=== PATIENT | female | born 1970 | race Caucasian/White ===

== ENCOUNTER 2023-03-30 13:23 | Outpatient (AMB) | payer OTHER, SELFPAY ==
--- NOTE | 2023-03-30 13:24 | A.OFFVIS_ITS ---
Intake Vital Signs 03/30/23 13:27 Height 5 ft 4 in Weight 295 lb BMI 50.6 BP 132/78 Blood Pressure Location Rt brachial Position Sitting Respiration 19 Pulse 98 Temp 98.6 F Temp Source Temporal Artery Scan Pulse Oximetry (%) 98 Oxygen Delivery Method Room Air Intake Visit Reasons: Joint pain Allergies No Known Allergies Allergy (Verified 03/30/23 13:31) Medication List - Last Reconciled 03/30/23 by Hilda Salazar MD blood sugar diagnostic (FreeStyle Lite Strips) As directed fluticasone propionate 50 mcg/actuation 1 spray intranasal BID glimepiride mg PO levonorgestrel-ethinyl estrad 0.15 mg-30 mcg (91) PO levothyroxine 125 mcg PO DAILY loratadine (Claritin) 10 mg PO DAILY HPI HPI Comments History of Present Illness Details This is a 53-year-old female who presents for evaluation of diffuse pain. The last fall patient started having left hip pain and stiffness, this lasted a few months, she was evaluated by her PCP and prescribed standing dose of NSAIDs which did not provide much relief. Afterwards she started having pain in her right hip. The pain is constant, associated with morning stiffness lasting 10 minutes, improved with getting on an exercise bike. Over the last few months she has been having pain in both elbows. She gets pain in her PIPs while typing. She is unaware of any family history of autoimmune rheumatic disease. Denies any history of DVT/PE. Unaware of any history of psoriasis. [facility] Medical History (Updated 03/30/23 @ 14:24 by Hilda Salazar MD) Hypothyroidism Type 2 diabetes mellitus Surgical History History of tonsillectomy and adenoidectomy Hx of cholecystectomy Hx of lumpectomy Family History Mother Type 2 diabetes mellitus TIA (transient ischemic attack) Migraine Father Pancreatic cancer Substance abuse Sister Type 2 diabetes mellitus Migraine Thyroid disease Social History Alcohol intake: current Alcohol intake frequency: a few times a month Patient Tobacco Use Status: Never used Tobacco Female Reproductive History Menstrual Total pregnancies: 0 Review of Systems Const Reports fatigue and Reports weakness ENT Reports dizziness and Reports tinnitus GI Reports no additional complaints Musc Reports back pain, Reports arthralgias and Reports stiffness Neuro Reports dizziness and Reports weakness Psych Reports anxiety and Reports depression Endo Reports fatigue Physical Exam Vital Signs: Last Vital Signs Temp 98.6 F 03/30/23 13:27 Pulse 98 03/30/23 13:27 Resp 19 03/30/23 13:27 BP 132/78 03/30/23 13:27 Pulse Ox 98 03/30/23 13:27 Oxygen Delivery Method Room Air 03/30/23 13:27 BMI result Body Mass Index 50.6 Const General: cooperative, healthy appearing and comfortable Nutritional Appearance: obese morbidly obese Orientation/consciousness: patient oriented x3 Limitations: no limitations HEENT Head: Yes normocephalic and Yes atraumatic Mouth: moist mucous membranes Resp Effort & Inspection: normal respiratory effort and able to speak in complete sentences Auscultation: clear to auscultation bilaterally Cardio Rate: regular rate Rhythm: regular rhythm GI Inspection: No distended Palpation (GI): Soft to palpation and nontender Neuro General: patient oriented x3 Extrem Other: Bilateral diffuse PIP tenderness without swelling Right elbow pain with full flexion Normal range of motion of both shoulders No wrist pain with full flexion and extension Negative MCP squeeze test Bilateral hip pain with flexion adduction and external rotation Bilateral knee warmth without swelling No ankle swelling or tenderness Negative MTP squeeze test Results Reviewed Results Reviewed: Labs 10/2022? WBC 13.0 Hemoglobin normal? Platelets normal? ESR 17? CRP 1.3 (<0.5) CMP unremarkable HbA1c 6.7%? TSH 2.65? CARLEE 1-640 homogeneous? RF negative? CCP negative Assessment & Plan Assessment & Plan (1) Pain in joint, multiple sites: Code(s): M25.50 - Pain in unspecified joint Plan: This is a 53-year-old female who presents for evaluation of multiple joint pain which started with left hip pain and stiffness followed by right hip pain and stiffness followed by bilateral elbow pain. Labs showed a mildly elevated inflammatory markers. Will order comprehensive serology to screen for under lying autoimmune rheumatic disease. Check x-rays of involved joints. Start prednisone therapeutic trial. Patient has well-controlled diabetes, HbA1c 6.7% advised patient to stop the prednisone and call the office if her blood sugar is above 200 Plan I spent 47 minutes reviewing patient's chart, evaluating patient, ordering diagnostic workup, counseling patient and documenting in the chart Orders: Orders Complete Blood Count Auto Diff Today M06.9 - Rheumatoid arthritis, unspecified Comprehensive Met. Panel Today M06.9 - Rheumatoid arthritis, unspecified C Reactive Protein Today M06.9 - Rheumatoid arthritis, unspecified Erythrocyte Sedimentation Rate Today M06.9 - Rheumatoid arthritis, unspecified Hepatitis A,B,C Profile Today Z11.59 - Encounter for screening for other viral diseases Immunofixation Pnl, Serum Today M06.9 - Rheumatoid arthritis, unspecified Protein Electrophoresis, Serum Today M06.9 - Rheumatoid arthritis, unspecified T Spot TB Today Z11.7 - Encounter for testing for latent tuberculosis infection Cyclic Citrullinated Peptide Today M06.9 - Rheumatoid arthritis, unspecified XR hip LT min 2V Today M25.551 - Pain in right hip, M25.552 - Pain in left hip XR hip RT min 2V Today M25.551 - Pain in right hip, M25.552 - Pain in left hip XR hand LT min 3V Today M79.641 - Pain in right hand, M79.642 - Pain in left hand XR hand RT min 3V Today M79.641 - Pain in right hand, M79.642 - Pain in left hand XR knee LT 3V Today M17.0 - Bilateral primary osteoarthritis of knee XR knee RT 3V Today M17.0 - Bilateral primary osteoarthritis of knee XR knee standing BI Today M17.0 - Bilateral primary osteoarthritis of knee XR lumbar spine 4V min Today G89.29 - Other chronic pain, M54.50 - Low back pain, unspecified Medications: New prednisone Take 3 tabs by mouth once daily with breakfast for 1 week then 2 tabs daily for 1 week then 1 tab daily for 1 week then stop 5 mg PO DIRECTED 42 tabs 0RF Coding Level of Care Code New Pt Level 4 (12114) Diagnoses Pain in joint, multiple sites M25.50
[2023-03-30 13:27] VITALS: BP 132/78; PULSE 98; RESP 19; TEMP 37; O2SAT 98; BMI 50.6
== END 2023-03-30 14:13 | disposition home or self-care (01) ==
PROVIDERS: Visit Provider Student in an Organized Health Care Education/Training Program
DX: M25.50 Pain in unspecified joint (principal)
CPT/HCPCS: 99204

== ENCOUNTER → 2023-03-30 13:23 | Outpatient (BNVA) | payer OTHER, SELFPAY | PROVIDERS: Visit Provider Student in an Organized Health Care Education/Training Program ==

== ENCOUNTER 2023-06-01 14:18 | Outpatient (AMB) | payer OTHER, SELFPAY ==
[2023-06-01 14:29] VITALS: BP 124/78; PULSE 86; TEMP 36.7; O2SAT 96; BMI 51.5
--- NOTE | 2023-06-01 14:29 | A.OFFVIS_ITS ---
Intake Vital Signs 06/01/23 14:29 Height 5 ft 4 in Weight 299 lb 13.259 oz BMI 51.5 BP 124/78 Blood Pressure Location Rt brachial Position Sitting Pulse 86 Pulse Source Pulse Oximeter Temp 98.1 F Temp Source Skin Pulse Oximetry (%) 96 Intake Visit Reasons: OA Intake Note: Pt seen today for OA follow up. 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 She started taking prednisone 2 weeks ago. She states that she felt at least 50% improvement in her overall pain, stiffness and mobility improved pain in her back, hips. Denies any side effects related to prednisone Initial history: This is a 53-year-old female who presents for evaluation of diffuse pain. The last fall patient started having left hip pain and stiffness, this lasted a few months, she was evaluated by her PCP and prescribed standing dose of NSAIDs which did not provide much relief. Afterwards she started having pain in her right hip. The pain is constant, associated with morning stiffness lasting 10 minutes, improved with getting on an exercise bike. Over the last few months she has been having pain in both elbows. She gets pain in her PIPs while typing. She is unaware of any family history of autoimmune rheumatic disease. Denies any history of DVT/PE. Unaware of any history of psoriasis. [facility] Medical History Hypothyroidism Type 2 diabetes mellitus Surgical History History of tonsillectomy and adenoidectomy Hx of lumpectomy Hx of cholecystectomy Family History Mother Type 2 diabetes mellitus TIA (transient ischemic attack) Migraine Father Pancreatic cancer Substance abuse Sister Type 2 diabetes mellitus Migraine Thyroid disease Social History Alcohol intake: current Alcohol intake frequency: a few times a month Patient Tobacco Use Status: Never used Tobacco Review of Systems [facility] Reports back pain and Reports arthralgias Physical Exam Vital Signs: Last Vital Signs Temp 98.1 F 06/01/23 14:29 Pulse 86 06/01/23 14:29 BP 124/78 06/01/23 14:29 Pulse Ox 96 06/01/23 14:29 BMI result Body Mass Index 51.5 Const General: cooperative, healthy appearing and comfortable Nutritional Appearance: obese morbidly obese Orientation/consciousness: patient oriented x3 Limitations: no limitations HEENT Head: Yes normocephalic and Yes atraumatic Mouth: moist mucous membranes Resp Effort & Inspection: normal respiratory effort and able to speak in complete sentences Neuro General: patient oriented x3 Extrem Other: Physical exam today: No swelling or tenderness both hands, wrists, MCPs, PIPs DIPs Normal range of motion of both elbows without pain Positive empty can test bilaterally Minimal right groin pain with flexion adduction and external rotation Negative straight leg raise test bilaterally Physical exam 03/2023 Bilateral diffuse PIP tenderness without swelling Right elbow pain with full flexion Normal range of motion of both shoulders No wrist pain with full flexion and extension Negative MCP squeeze test Bilateral hip pain with flexion adduction and external rotation Bilateral knee warmth without swelling No ankle swelling or tenderness Negative MTP squeeze test Results Reviewed Results Reviewed: Labs 10/2022? WBC 13.0 Hemoglobin normal? Platelets normal? ESR 17? CRP 1.3 (<0.5) CMP unremarkable HbA1c 6.7%? TSH 2.65? CARLEE 1-640 homogeneous? RF negative? CCP negative CRP 1.1 ESR 29 Labs 05/2023 SSA/SSB/Gipson/DIRECTOR OF REVENUE/CCP/dsDNA Hepatitis panel and QuantiFERON test negative X-rays 05/2023 Bilateral hip x-rays impression: Normal Bilateral hand x-rays, impression: Normal examination of both hands Bilateral knee x-rays impression: Mild tricompartmental degenerative osteoarthritis but no acute abnormality L-spine x-ray impression: Normal lumbar spine Assessment & Plan Assessment & Plan (1) Pain in joint, multiple sites: Code(s): M25.50 - Pain in unspecified joint Plan: This is a 53-year-old female who presents for evaluation of multiple joint pain which started with left hip pain and stiffness followed by right hip pain and stiffness followed by bilateral elbow pain. Labs showed a mildly elevated inflammatory markers. Comprehensive serology is unremarkable. Patient had at least 50% symptomatic improvement with 15 mg of prednisone. Upon evaluation today patient has much fewer tender joints. Advised patient to complete the prednisone taper as prescribed. Re-evaluate in 2 months. If patient has recurrent symptoms, will consider starting a DMARD for seronegative arthritis Plan I spent 27 minutes reviewing patient's chart, evaluating patient, counseling patient and documenting in the chart Coding Level of Care Code Est Pt Level 4 (37897) Diagnoses Pain in joint, multiple sites M25.50
== END 2023-06-01 14:50 | disposition home or self-care (01) ==
PROVIDERS: Visit Provider Student in an Organized Health Care Education/Training Program
DX: M25.50 Pain in unspecified joint (principal)
CPT/HCPCS: 99214

== ENCOUNTER → 2023-06-01 14:18 | Outpatient (BNVA) | payer OTHER, SELFPAY | PROVIDERS: Visit Provider Student in an Organized Health Care Education/Training Program ==

== ENCOUNTER 2023-08-04 13:36 | Outpatient (AMB) | payer OTHER, SELFPAY ==
--- NOTE | 2023-08-04 13:51 | MHC.OFFVIS ---
Intake Vital Signs 08/04/23 14:08 Height 5 ft 4 in Weight 302 lb 11.115 oz BMI 52.0 BP 118/72 Blood Pressure Location Rt brachial Position Sitting Pulse 75 Pulse Source Pulse Oximeter Temp 97.7 F Temp Source Skin Pulse Oximetry (%) 98 Intake Visit Reasons: RA/OA Intake Note: Pt last seen 06/01/23, presents today for follow up. Completed prednisone taper, has noticed an increase in pain. 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 She states that she feels much worse now that she has been off the prednisone. She stated that prednisone provided at least 80% relief. She states that she is now having recurring lower back pain, bilateral hip pain on the outside of the hip as well as inside towards the groin. Bilateral knee pain. Initial history: This is a 53-year-old female who presents for evaluation of diffuse pain. The last fall patient started having left hip pain and stiffness, this lasted a few months, she was evaluated by her PCP and prescribed standing dose of NSAIDs which did not provide much relief. Afterwards she started having pain in her right hip. The pain is constant, associated with morning stiffness lasting 10 minutes, improved with getting on an exercise bike. Over the last few months she has been having pain in both elbows. She gets pain in her PIPs while typing. She is unaware of any family history of autoimmune rheumatic disease. Denies any history of DVT/PE. Unaware of any history of psoriasis. [facility] Medical History Hypothyroidism Type 2 diabetes mellitus Surgical History History of tonsillectomy and adenoidectomy Hx of lumpectomy Hx of cholecystectomy Family History Mother Type 2 diabetes mellitus TIA (transient ischemic attack) Migraine Father Pancreatic cancer Substance abuse Sister Type 2 diabetes mellitus Migraine Thyroid disease Social History Alcohol intake: current Alcohol intake frequency: a few times a month Patient Tobacco Use Status: Never used Tobacco Review of Systems [facility] [place] Reports back pain and Reports arthralgias Physical Exam Vital Signs: Last Vital Signs Temp 97.7 F 08/04/23 14:08 Pulse 75 08/04/23 14:08 BP 118/72 08/04/23 14:08 Pulse Ox 98 08/04/23 14:08 BMI result Body Mass Index 52.0 Const General: cooperative, healthy appearing and comfortable Nutritional Appearance: obese morbidly obese Orientation/consciousness: patient oriented x3 Limitations: no limitations HEENT Head: Yes normocephalic and Yes atraumatic Mouth: moist mucous membranes Resp Effort & Inspection: normal respiratory effort and able to speak in complete sentences Neuro General: patient oriented x3 Extrem Other: Physical exam today: Normal range of motion of both shoulders? No wrist pain with full flexion and extension? Negative MCP squeeze test? Bilateral groin pain with flexion adduction and external rotation? Bilateral knee warmth without swelling, pain with full flexion and extension No ankle swelling or tenderness? Negative MTP squeeze test Physical exam 06/01/2023 No swelling or tenderness both hands, wrists, MCPs, PIPs DIPs Normal range of motion of both elbows without pain Positive empty can test bilaterally Minimal right groin pain with flexion adduction and external rotation Negative straight leg raise test bilaterally Physical exam 03/2023 Bilateral diffuse PIP tenderness without swelling Right elbow pain with full flexion Normal range of motion of both shoulders No wrist pain with full flexion and extension Negative MCP squeeze test Bilateral hip pain with flexion adduction and external rotation Bilateral knee warmth without swelling No ankle swelling or tenderness Negative MTP squeeze test Results Reviewed Results Reviewed: Labs 10/2022? WBC 13.0 Hemoglobin normal? Platelets normal? ESR 17? CRP 1.3 (<0.5) CMP unremarkable HbA1c 6.7%? TSH 2.65? CARLEE 1-640 homogeneous? RF negative? CCP negative CRP 1.1 ESR 29 Labs 05/2023 SSA/SSB/Gipson/SUPPRESSION CREW LEADER/CCP/dsDNA Hepatitis panel and QuantiFERON test negative X-rays 05/2023 Bilateral hip x-rays impression: Normal Bilateral hand x-rays, impression: Normal examination of both hands Bilateral knee x-rays impression: Mild tricompartmental degenerative osteoarthritis but no acute abnormality L-spine x-ray impression: Normal lumbar spine Assessment & Plan Assessment & Plan (1) Pain in joint, multiple sites: Code(s): M25.50 - Pain in unspecified joint Plan: This is a 53-year-old female who presents for evaluation of multiple joint pain which started with left hip pain and stiffness followed by right hip pain and stiffness followed by bilateral elbow pain. Labs showed a mildly elevated inflammatory markers. Comprehensive serology is unremarkable. Patient had at least 80% symptomatic improvement with prednisone. Even the 5 mg dose. Start hydroxychloroquine 200 mg Twice daily. Start prednisone 5 mg daily for 3 weeks then 2.5 mg daily for 3 weeks Re-evaluate in 3 months (2) Long-term use of hydroxychloroquine: Code(s): Z79.899 - Other snf (current) drug therapy Plan: Discussed risk of retinopathy with hydroxychloroquine. Patient agreed to proceed. Patient states that she follows up regularly with estimate clerk Dr. Burger advised patient to call her estimate clerk and make an appointment for Plaquenil screening Plan I spent 27 minutes reviewing patient's chart, evaluating patient, placing orders, counseling patient and documenting in the chart Medications: New hydroxychloroquine 200 mg PO BID 60 tabs 2RF prednisone Take 2 tabs by mouth once daily for 3 weeks then 1 tab daily for 3 weeks then stop 63 tabs 0RF Coding Level of Care Code Est Pt Level 4 (10729) Diagnoses Pain in joint, multiple sites M25.50 Long-term use of hydroxychloroquine Z79.899
[2023-08-04 14:08] VITALS: BP 118/72; PULSE 75; TEMP 36.5; O2SAT 98; BMI 52.0
== END 2023-08-04 14:36 | disposition home or self-care (01) ==
PROVIDERS: Visit Provider Student in an Organized Health Care Education/Training Program
DX: M25.50 Pain in unspecified joint (principal); Z79.899 Other long term (current) drug therapy
CPT/HCPCS: 99214

== ENCOUNTER → 2023-08-04 13:36 | Outpatient (BNVA) | payer OTHER, SELFPAY | PROVIDERS: Visit Provider Student in an Organized Health Care Education/Training Program ==